=== PATIENT | female | born 1995 | race Hispanic/Latino ===

== ENCOUNTER 2019-02-01 17:08 | Emergency (ER) | payer OTHER ==
[2019-02-01 17:30] VITALS: BP 124/69; PULSE 72; RESP 16; TEMP 98.6; O2SAT 98
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
== END 2019-02-01 18:56 | disposition home or self-care (01) ==
LOC: H.ER 17:08
DX: M54.5 Low back pain (principal); G89.29 Other chronic pain; I34.1 Nonrheumatic mitral (valve) prolapse; M62.830 Muscle spasm of back
CPT/HCPCS: 81025; 96372; 99282; J1885